=== PATIENT | male | born 1935 | race Caucasian/White ===

== ENCOUNTER → 2017-06-23 | Outpatient (CLI) | payer MEDICARE, OTHER | END | disposition home or self-care (01) | LOC: RADPV 11:03 | PROVIDERS: ATTEND Orthopaedic Surgery | DX: M17.12 Unilateral primary osteoarthritis, left knee (principal); I70.8 Atherosclerosis of other arteries ==

== ENCOUNTER 2017-07-12 06:07 | Inpatient (IN) | payer MEDICARE, OTHER ==
[~2017-07-12] VITALS: Ht 152.4 cm; Wt 84.1 kg
[~2017-07-12 06:07] MED LIST: CeFAZolin 2 GM/DEXTROSE 50 ML IV ONE; INSLAN SQ; LISI-661 PO; METF500T4 PO; OMEP20 PO; PIOG15TA6 PO; PRAV20TA4 PO; RINGERS SOLUTION,LACTATED 1,000 ML IV ONE; SERT50TA12 PO; SITA50 PO
[2017-07-12] MEDS ORDERED: SODIUM CL IRRIG SOLN BAG 3,000 ML IRRIG ONE (06:47)
[2017-07-12] MEDS ORDERED: VANCOMYCIN HCL 1 GM/VIAL ONE ×2 (06:48→08:07)
[2017-07-12] MEDS ORDERED: BUPIVACAINE HCL/PF 0.5% 30 ML VIAL ONE ×2 (06:48→08:26)
[2017-07-12 06:57] LABS: GLUCOSE,POINT OF CARE 156 MG/DL (70-110)
[2017-07-12] MEDS ORDERED: TRANEXAMIC ACID 1,000 MG/10 ML VIAL IVP ONE (07:00)
[2017-07-12] MEDS ORDERED: CeFAZolin 2 GM/DEXTROSE 50 ML IV ONE (07:00)
[2017-07-12] MEDS ORDERED: TRANEXAMIC ACID 1,000 MG in DEXTROSE 5%-WATER 50 ML IV ONE (07:00)
[2017-07-12] MEDS ORDERED: RINGERS SOLUTION,LACTATED 1,000 ML IV SCH (07:00)
[2017-07-12] MEDS ORDERED: RINGERS SOLUTION,LACTATED 2,000 ML IV ONE (07:54)
[2017-07-12] MEDS ORDERED: SODIUM CHLORIDE 0.9% 250 ML IV ONE (07:57)
[2017-07-12] MEDS ORDERED: ACETAMINOPHEN 1000 MG/ISO-OSM 100 ML IV ONE (08:28)
[2017-07-12] MEDS ORDERED: ZOLPIDEM TARTRATE 10 MG TABLET PO PRN (08:45)
[2017-07-12] MEDS ORDERED: FentaNYL CITRATE-PF 100 MCG/2 ML VIAL IVP PRN (08:45)
[2017-07-12] MEDS: ACETAMINOPHEN 1000 MG/ISO-OSM 100 ML IV SCH ×3 (08:45→23:47)
[2017-07-12] MEDS: OXYGEN THERAPY IH SCH ×2 (08:45→20:00)
[2017-07-12] MEDS ORDERED: MEPERIDINE-PF 25 MG/ML SYRINGE IVP PRN (08:45)
[2017-07-12] MEDS ORDERED: HYDROmorphone 2 MG/ML SYRINGE IVP PRN ×2 (08:45)
[2017-07-12] MEDS ORDERED: ENOXAPARIN SODIUM 40 MG/0.4 ML PF SYRINGE SQ ONE (09:00)
[2017-07-12] MEDS: CYCLOBENZAPRINE HCL 10 MG TABLET PO SCH ×2 (09:00→21:24)
[2017-07-12 11:23] VITALS: BP 129/65
[2017-07-12] MEDS ORDERED: LIDOCAINE HCL/PF 2% 5 ML VIAL INJ ONE (12:00)
[2017-07-12] MEDS ORDERED: PROPOFOL 1% 20 ML VIAL IVP ONE (12:00)
[2017-07-12] MEDS ORDERED: SUCCINYLCHOLINE CHLORIDE 20 MG/ML 10 ML VIAL IVP ONE (12:00)
[2017-07-12] MEDS ORDERED: METOCLOPRAMIDE HCL 5 MG/ML 2 ML VIAL IVP ONE (12:00)
[2017-07-12] MEDS ORDERED: ONDANSETRON HCL 4 MG/2 ML VIAL IVP ONE (12:00)
[2017-07-12] MEDS ORDERED: DEXTROSE 50%-WATER 25 GM/50 ML SYRINGE IVP PRN (12:30)
[2017-07-12] MEDS ORDERED: MORPHINE SULFATE/PF 0.5 MG/ML 10 ML AMP IVP ONE (12:50)
[2017-07-12] MEDS ORDERED: KETAMINE HCL 50 MG/ML 10 ML VIAL IVP ONE (12:50)
[2017-07-12] MEDS ORDERED: FentaNYL CITRATE-PF 100 MCG/2 ML VIAL IVP ONE (12:50)
[2017-07-12] MEDS ORDERED: MIDAZOLAM HCL 2 MG/2 ML VIAL IVP ONE (12:50)
[2017-07-12] MEDS: CeFAZolin 2 GM/DEXTROSE 50 ML IV SCH ×2 (14:20→21:25)
[2017-07-12 16:10] VITALS: BP 104/51
[2017-07-12] MEDS: INSULIN ASPART 100 UNITS/ML SQ PRN ×2 (17:23→21:26)
[2017-07-12 19:38] VITALS: BP 134/63
[2017-07-12 19:57] LABS: GLUCOSE,POINT OF CARE 282 MG/DL (70-110)
[2017-07-12 19:57] LABS: GLUCOSE,POINT OF CARE 169 MG/DL (70-110)
[2017-07-12] MEDS: PRAVASTATIN SODIUM 20 MG TABLET PO SCH (21:24)
[2017-07-12 23:44] VITALS: BP 124/60
[2017-07-13] VITALS (8 sets, daily range): BP systolic 94–134; BP diastolic 49–77
[2017-07-13 05:48] LABS: GLUCOSE,POINT OF CARE 178 MG/DL (70-110)
[2017-07-13] MEDS: CeFAZolin 2 GM/DEXTROSE 50 ML IV SCH ×3 (06:00→22:53)
[2017-07-13] MEDS: INSULIN ASPART 100 UNITS/ML SQ PRN ×4 (06:05→20:51)
[2017-07-13 06:33] LABS: CALCIUM, TOTAL 8.7 mg/dL (8.8-10.5); CREATININE 1.46 mg/dL (0.60-1.30); POTASSIUM 4.3 mmol/L (3.5-5.1)
[2017-07-13 07:46] LABS: BASOPHILS # (AUTO) 0.02 K/uL (0.00-0.20); BASOPHILS % (AUTO) 0.3 % (0.0-2.0); EOSINOPHILS # (AUTO) 0.19 K/uL (0.00-0.70); EOSINOPHILS % (AUTO) 1.96 % (1.0-6.0); HEMATOCRIT 31.5 % (41-53); HEMOGLOBIN 10.7 g/dL (13.5-17.5); LYMPHOCYTES # (AUTO) 1.7 K/uL (1.0-4.8); LYMPHOCYTES % (AUTO) 17.8 % (22.0-44.0); MEAN CORPUSCULAR HEMOGLOBIN 30.2 pg (26.0-34.0); MEAN CORPUSCULAR HGB CONC 34.1 G/dL (31.0-37.0); MEAN CORPUSCULAR VOLUME 89 fL (80-100); MONOCYTES # (AUTO) 1.1 K/uL (0.1-1.0); MONOCYTES % (AUTO) 11.6 % (2.0-9.0); NEUTROPHILS # (AUTO) 6.5 K/uL (1.8-7.7); NEUTROPHILS % (AUTO) 68.5 % (40.0-70.0); PLATELET COUNT (AUTO) 174 K/uL (150-450); RED BLOOD CELL COUNT(AUTO) 3.55 MIL/uL (4.50-5.90); RED CELL DISTRIBUTION WIDTH 13.3 % (11.5-14.5); WHITE BLOOD COUNT (AUTO) 9.5 K/uL (4.5-11.0)
[2017-07-13] MEDS: OXYGEN THERAPY IH SCH ×2 (08:00→20:00)
[2017-07-13] MEDS: OMEPRAZOLE 20 MG CAPSULE PO SCH (08:31)
[2017-07-13] MEDS: PIOGLITAZONE HCL 15 MG TABLET PO SCH (08:31)
[2017-07-13] MEDS: SitaGLIPtin PHOSPHATE 50 MG TABLET PO SCH (08:31)
[2017-07-13] MEDS: CYCLOBENZAPRINE HCL 10 MG TABLET PO SCH ×2 (08:31→20:47)
[2017-07-13] MEDS: MetFORMIN HCL 500 MG TABLET PO SCH (08:31)
[2017-07-13] MEDS: ACETAMINOPHEN 1000 MG/ISO-OSM 100 ML IV SCH (08:31)
[2017-07-13] MEDS: LISINOPRIL 10 MG TABLET PO SCH ×2 (08:31→09:00)
[2017-07-13 12:04] LABS: GLUCOSE,POINT OF CARE 254 MG/DL (70-110)
[2017-07-13] MEDS: OxyCODONE HCL/ACETAMINOPHEN 5-325 MG TABLET PO PRN ×2 (14:11→17:44)
[2017-07-13 18:08] LABS: GLUCOSE,POINT OF CARE 199 MG/DL (70-110)
[2017-07-13] MEDS: PRAVASTATIN SODIUM 20 MG TABLET PO SCH (20:47)
[2017-07-13] MEDS: INSULIN DETEMIR 100 UNITS/ML SQ SCH (20:50)
[2017-07-13 22:57] LABS: GLUCOSE,POINT OF CARE 189 MG/DL (70-110)
[2017-07-14] VITALS (7 sets, daily range): BP systolic 92–133; BP diastolic 47–63
[2017-07-14] MEDS: CeFAZolin 2 GM/DEXTROSE 50 ML IV SCH (05:32)
[2017-07-14 05:43] LABS: GLUCOSE,POINT OF CARE 131 MG/DL (70-110)
[2017-07-14] MEDS: OXYGEN THERAPY IH SCH ×2 (08:00→20:00)
[2017-07-14] MEDS: MetFORMIN HCL 500 MG TABLET PO SCH (08:30)
[2017-07-14] MEDS: OMEPRAZOLE 20 MG CAPSULE PO SCH (08:30)
[2017-07-14] MEDS: OxyCODONE HCL/ACETAMINOPHEN 5-325 MG TABLET PO PRN ×3 (08:30→20:46)
[2017-07-14] MEDS: SitaGLIPtin PHOSPHATE 50 MG TABLET PO SCH (08:30)
[2017-07-14] MEDS: PIOGLITAZONE HCL 15 MG TABLET PO SCH (08:30)
[2017-07-14] MEDS: LISINOPRIL 10 MG TABLET PO SCH (08:31)
[2017-07-14] MEDS: CYCLOBENZAPRINE HCL 10 MG TABLET PO SCH ×2 (08:31→20:46)
[2017-07-14] MEDS: INSULIN DETEMIR 100 UNITS/ML SQ SCH ×2 (08:45→20:50)
[2017-07-14] MEDS: ENOXAPARIN SODIUM 40 MG/0.4 ML PF SYRINGE SQ SCH (12:53)
[2017-07-14] MEDS: INSULIN ASPART 100 UNITS/ML SQ PRN ×3 (12:57→20:48)
[2017-07-14 15:23] LABS: GLUCOSE,POINT OF CARE 227 MG/DL (70-110)
[2017-07-14 15:23] LABS: GLUCOSE,POINT OF CARE 143 MG/DL (70-110)
[2017-07-14 20:40] LABS: GLUCOSE,POINT OF CARE 173 MG/DL (70-110)
[2017-07-14 20:40] LABS: GLUCOSE,POINT OF CARE 202 MG/DL (70-110)
[2017-07-14] MEDS: PRAVASTATIN SODIUM 20 MG TABLET PO SCH (20:46)
[2017-07-15 04:25] VITALS: BP 100/58
[2017-07-15 07:00] VITALS: BP 97/50
[2017-07-15] MEDS: LISINOPRIL 10 MG TABLET PO SCH (09:00)
[2017-07-15] MEDS ORDERED: ENOXAPARIN SODIUM 40 MG/0.4 ML PF SYRINGE SQ SCH (09:00)
[2017-07-15] MEDS: PIOGLITAZONE HCL 15 MG TABLET PO SCH (09:29)
[2017-07-15] MEDS: SitaGLIPtin PHOSPHATE 50 MG TABLET PO SCH (09:29)
[2017-07-15] MEDS: MetFORMIN HCL 500 MG TABLET PO SCH (09:29)
[2017-07-15] MEDS: CYCLOBENZAPRINE HCL 10 MG TABLET PO SCH (09:29)
[2017-07-15] MEDS: OMEPRAZOLE 20 MG CAPSULE PO SCH (09:29)
[2017-07-15] MEDS: ENOXAPARIN SODIUM 40 MG/0.4 ML PF SYRINGE SQ SCH (09:30)
[2017-07-15] MEDS: INSULIN DETEMIR 100 UNITS/ML SQ SCH (09:40)
[2017-07-15 11:46] VITALS: BP 113/58
[2017-07-15 12:00] LABS: GLUCOSE,POINT OF CARE 164 MG/DL (70-110)
[2017-07-15 12:00] LABS: GLUCOSE,POINT OF CARE 125 MG/DL (70-110)
[2017-07-15 12:00] LABS: GLUCOSE,POINT OF CARE 180 MG/DL (70-110)
[2017-07-15] MEDS: INSULIN ASPART 100 UNITS/ML SQ PRN (12:02)
== END 2017-07-15 13:35 | disposition home or self-care (01) | DRG 470 ==
LOC: 4E 06:07
PROVIDERS: ADMIT Orthopaedic Surgery; ATTEND Orthopaedic Surgery
PROC: 0SRD0J9 Replacement of Left Knee Joint with Synthetic Substitute, Cemented, Open Approach (ICD-10-PCS; principal; 2017-07-12 07:30)
DX: M17.12 Unilateral primary osteoarthritis, left knee (principal); E11.9 Type 2 diabetes mellitus without complications; I10 Essential (primary) hypertension; K21.9 Gastro-esophageal reflux disease without esophagitis; E78.5 Hyperlipidemia, unspecified
CPT/HCPCS: 82962; 87081; 88300; 97110; 97116; 97162; 97165; 97530; 97535; J0131; J0330; J0690; J1650; J2250; J2274; J2405; J2704; J2765; J3010; J3370; J3490; J7050; J7060; J7120

== ENCOUNTER → 2017-09-13 | Outpatient (CLI) | payer MEDICARE, OTHER ==
[~2017-09-13] MED LIST changes: -CeFAZolin 2 GM/DEXTROSE 50 ML IV ONE; -RINGERS SOLUTION,LACTATED 1,000 ML IV ONE
== END | disposition home or self-care (01) ==
LOC: RADPV 10:39
PROVIDERS: ATTEND Orthopaedic Surgery
DX: M25.462 Effusion, left knee (principal); M25.862 Other specified joint disorders, left knee; Z96.652 Presence of left artificial knee joint